=== PATIENT | female | born 1985 | race Caucasian/White ===

== ENCOUNTER 2019-06-25 13:11 | Emergency (ER) | payer OTHER ==
[~2019-06-25] VITALS: Ht 172.7 cm; Wt 74.8 kg
[2019-06-25 13:59] LABS: INFLUENZA A ANTIGEN Positive (Negative); INFLUENZA B ANTIGEN Negative (Negative)
[2019-06-25] MEDS ORDERED: TAMIFLU75 MG PO (14:20)
[2019-06-25] MEDS ORDERED: REGLAN 10 MG TA10 MG PO (14:20)
[2019-06-25 14:38] VITALS: BP 106/48
== END 2019-06-25 14:38 | disposition home or self-care (01) ==
LOC: M.ERS 13:11
PROVIDERS: Nurse Practitioner Family
DX: O26.892 Other specified pregnancy related conditions, second trimester (principal); J09.X2 Influenza due to identified novel influenza A virus with other respiratory manifestations; J45.909 Unspecified asthma, uncomplicated; Z3A.19 19 weeks gestation of pregnancy

== ENCOUNTER 2019-08-18 21:28 | Emergency (ER) | payer OTHER, MEDICAID ==
[~2019-08-18] VITALS: Ht 172.7 cm; Wt 80.7 kg
[~2019-08-18 21:28] MED LIST: REGLAN 10 MG TA10 MG PO; TAMIFLU75 MG PO
[2019-08-18 21:58] VITALS: BP 119/47
== END 2019-08-18 22:23 | disposition home or self-care (01) ==
LOC: M.ERS 21:28
DX: O26.892 Other specified pregnancy related conditions, second trimester (principal); M79.602 Pain in left arm; O99.512 Diseases of the respiratory system complicating pregnancy, second trimester; Z3A.27 27 weeks gestation of pregnancy

== ENCOUNTER 2020-11-11 09:58 | Emergency (ER) | payer OTHER, MEDICAID ==
[~2020-11-11] VITALS: Ht 170.2 cm; Wt 82.1 kg
[2020-11-11] MEDS ORDERED: AMOXIL 875 MG875 M1 PO (10:43)
[2020-11-11] MEDS ORDERED: IBUPROFEN 600600 M1 PO (10:43)
[2020-11-11] MEDS ORDERED: LIDOCAINE VISC100 ML SWISH&SPIT (10:43)
[2020-11-11 10:56] VITALS: BP 118/62
== END 2020-11-11 10:56 | disposition home or self-care (01) ==
LOC: M.ERS 09:58
DX: K02.9 Dental caries, unspecified (principal); J45.909 Unspecified asthma, uncomplicated